=== PATIENT | male | born 1975 | race Caucasian/White ===

== ENCOUNTER 2016-11-02 15:31 | Emergency (ER) | payer BC ==
[2016-11-02 15:40] VITALS: BP 123/82
--- NOTE | 2016-11-02 16:12 | UC ---
Skin Complaint HPI - HPI Summary HPI Summary: 41 y/o male presents to the urgent care c/o left foot pain. Pt reports LF foot warts were frozen yesterday by his primary physician and now wants to make sure they are healing ok. He states his pain is dull about 5/10. Pt denies fever, SOB, N/V/D, chest pain. - History of Current Complaint Chief Complaint: UCSkin Time Seen by Provider: 11/02/16 15:36 Stated Complaint: LFT FOOT PAIN Hx Obtained From: Patient Onset/Duration: Gradual Onset, Lasting Hours, Still Present Skin Exposure Onset/Duration: Days Ago - 1 day Timing: Constant Onset Severity: Mild Current Severity: Moderate Pain Intensity: 5 Pain Scale Used: 0-10 Numeric Location: Foot (Left) - LF #1 toe medial side with 3 frozen warts, LF #2 toe w/ 1 forzen wart Character: Swelling, Pain, Raised Aggravating: Touch Alleviating: Nothing Associated Signs & Symptoms: Positive: Tenderness. Negative: Nausea, Vomiting, Numbness, Fever - Allergy/Home Medications Allergies/Adverse Reactions: Allergies Allergy/AdvReac Type Severity Reaction Status Date / Time No Known Allergies Allergy Verified 11/02/16 15:39 Home Medications: Home Medications NK [No Home Medications Reported] 11/02/16 [History Confirmed 11/02/16] Review of Systems Constitutional: Negative Skin: Other - LF #1 and 2 toe with frozen warts Eyes: Negative, Diplopia Respiratory: Negative Cardiovascular: Negative Gastrointestinal: Negative Genitourinary: Negative Motor: Negative Neurovascular: Negative Musculoskeletal: Negative Neurological: Negative Psychological: Negative All Other Systems Reviewed And Are Negative: Yes PMH/Surg Hx/FS Hx/Imm Hx Previously Healthy: Yes - Surgical History Surgical History: Yes Surgery Procedure, Year, and Place: Deviated septum repair - Family History Family History: breast cancer, skin cancer - Social History Occupation: Employed Full-time Lives: With Family Alcohol Use: Occasionally Substance Use Type: None Smoking Status (MU): Never Smoked Tobacco Physical Exam Triage Information Reviewed: Yes Appearance: Well-Appearing, No Pain Distress, Well-Nourished Vital Signs: Initial Vital Signs Temp 97.6 F 11/02/16 15:33 Pulse 73 11/02/16 15:33 Resp 14 11/02/16 15:33 BP 123/82 11/02/16 15:33 Pulse Ox 98 11/02/16 15:33 Vital Signs Reviewed: Yes Eye Exam: Normal Eyes: Positive: Conjunctiva Clear ENT Exam: Normal ENT: Positive: Normal ENT inspection, Hearing grossly normal, Pharynx normal Neck exam: Normal Neck: Positive: Supple, Nontender, No Lymphadenopathy Respiratory Exam: Normal Respiratory: Positive: Chest non-tender, Lungs clear Cardiovascular Exam: Normal Cardiovascular: Positive: RRR, No Murmur, Pulses Normal Abdominal Exam: Normal Abdomen Description: Positive: Nontender, No Organomegaly, Soft Bowel Sounds: Positive: Present Musculoskeletal Exam: Normal Musculoskeletal: Positive: Strength Intact, ROM Intact, No Edema Neurological Exam: Normal Psychological Exam: Normal Skin: Positive: Other - LF #1 toe medial side with a blood blister s/p frozen procedure of 3 warts. mild erythema around blister. tender to palpation. Size 1X1 cm, Postive capillary refill, FROM of toe, sensation intact. LF #2 toe with frozen wart healing well. Course/Dx - Course Course Of Treatment: Left foot pain: Hx obtained. PE abnormal findings:LF #1 toe medial side with a blood blister s/p frozen procedure of 3 warts. mild erythema around blister. tender to palpation. Size 1X1 cm, Postive capillary refill, FROM of toe, sensation intact. LF #2 toe with frozen wart healing well. Procedure: Left #1 toe cleaned well. a 25 G needle used to open the blister and allow blood to drain. Pressure applied and all blood was drained. wound cleaned again and Bacitracin ointment applied, wound dressed with gauze and tape. Patient tolerated well procedure. Toe neurovascular intact and FROM after procedure. Pt advised to take Tylenol 500mgPO TID prn to alleviate pain and swelling. Keep wound dry and elevate foot. Also advised if symptoms worsen to return to the urgent care or f/u with his PCP Maureen Bradshaw for furhter evaluation and treatment. - Differential Diagnoses - Skin Complaint Differential Diagnoses: Cellulitis, Tinea, Urticaria - Diagnoses Provider Diagnoses: blood blister of LF #1 toe Discharge - Discharge Plan Condition: Stable Disposition: HOME Patient Education Materials: Surgical Site Infections (ED) Referrals: [facility] [Outside] Additional Instructions: Please take Tylenol 500mg PO TID prn to alleviate pain and swelling. Please keep wound dry and elevate your leg. If symptoms worsen please return to the urgent care or f/u with your PCP Waleska Bradshaw for further evaluation and treatment.
== END 2016-11-02 16:23 | disposition home or self-care (01) ==
LOC: UCCORT 15:31
DX: S90.422A Blister (nonthermal), left great toe, initial encounter (principal); X58.XXXA Exposure to other specified factors, initial encounter; Y92.9 Unspecified place or not applicable
CPT/HCPCS: 99201; G0463